=== PATIENT | female | born 2000 | race African-American/Black ===

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

== ENCOUNTER 2023-08-21 22:09 | Emergency (ER) | payer MEDICAID ==
[~2023-08-21] VITALS: Ht 162.6 cm; Wt 82.3 kg
[2023-08-21 22:20] VITALS: BP 107/65; PULSE 68; RESP 15
[2023-08-21 22:52] LABS: BASOPHILS % 0.3 % (0.0-2.0); EOSINOPHILS % 0.1 % (0.0-5.0); HEMATOCRIT. 36.3 % (36.0-48.0); LYMPHOCYTES % 33.6 % (20.0-50.0); MEAN CORPUSCULAR HEMOGLOBIN 27.4 pg (28.0-32.0); MEAN CORPUSCULAR HGB CONC 33.1 g/dL (31.0-37.0); MEAN CORPUSCULAR VOLUME 82.8 fL (81.0-99.0); MEAN PLATELET VOLUME 9.4 fl (7.4-10.4); MONOCYTES % 5.8 % (2.0-8.0); NEUTROPHILS % 60.2 % (40.0-76.0); PLATELET 225 x1000/uL (130-400); RED BLOOD CELL COUNT 4.39 mill/uL (4.2-5.4); RED CELL DISTRIBUTION WIDTH 15.6 % (11.6-14.6); WHITE BLOOD COUNT 10.2 x1000/uL (4.5-11.0)
[2023-08-21 23:10] LABS: ALANINE AMINOTRANSFERASE 12 IU/L (10-49); ALBUMIN 4.9 g/dL (3.2-4.8); ASPARTATE AMINOTRANSFERASE 15 IU/L (<34); BILIRUBIN TOTAL 0.5 mg/dL (0.1-1.0); CALCIUM 9.3 mg/dL (8.7-10.4); CARBON DIOXIDE 23 mEq/L (21-32); CHLORIDE 106 mEq/L (98-107); CREATININE 0.7 mg/dL (0.6-1.0); GLUCOSE 86 mg/dL (70-105); POTASSIUM 2.9 mEq/L (3.5-5.1); PROTEIN TOTAL 7.4 g/dL (6.0-8.3); SODIUM 138 mEq/L (136-145); TROPONIN I HIGH SENSITIVITY 4 ng/L (3.0-34); UREA NITROGEN BLOOD 8 mg/dL (9-23)
[2023-08-22] MEDS ORDERED: POTA-204 MT (01:41)
[2023-08-22] MEDS ORDERED: ACET-2708 MT (01:41)
[2023-08-22 01:55] VITALS: TEMP 98.6
[2023-08-22] MEDS: ACETAMINOPHEN 325MG TABLET PO ONE (01:55)
[2023-08-22] MEDS: SODIUM CHLORIDE 0.9% 1,000 ML IV ONE (01:55)
[2023-08-22] MEDS: POTASSIUM CHLORIDE 20MEQ/PACKET PO ONE (01:55)
== END 2023-08-22 01:57 | disposition home or self-care (01) ==
LOC: ER 22:17
DX: E87.6 Hypokalemia (principal); R07.89 Other chest pain; I10 Essential (primary) hypertension
CPT/HCPCS: 36415; 71045; 80053; 84484; 85025; 93005; 99285; J7030